=== PATIENT | male | born 1985 | race Caucasian/White ===

== ENCOUNTER 2017-09-09 00:33 | Emergency (ER) | payer BC ==
[~2017-09-09] VITALS: Ht 172.7 cm; Wt 122.0 kg
[2017-09-09 00:59] LABS: HEMATOCRIT 41.9 % (38.0-50.0); HEMOGLOBIN 14.3 G/DL (12.5-16.6); MCH 29.8 PG (29.0-34.0); MCHC 34.1 G/DL (30.0-36.0); MCV 87.3 FL (86-99); RBC DIS.WIDTH-CV 12.3 % (11.8-14.6); RBC DIS.WIDTH-SD 38.9 % (39-53); WHITE BLOOD COUNT 18.6 K/uL (4.1-10.2)
[2017-09-09 01:07] LABS: CHLORIDE 109 mEq/L (99-109); POTASSIUM 3.5 mEq/L (3.7-5.4); SODIUM 143 mEq/L (136-147)
[2017-09-09 01:09] LABS: GLUCOSE 111 mg/dL (70-99)
[2017-09-09 01:13] LABS: GFR ESTIMATE (CALCULATED) > 59 mL/min/ (58.99-99999)
[2017-09-09 01:14] LABS: UREA NITROGEN (BUN) 10 mg/dL (9-23)
[2017-09-09 01:19] LABS: ALBUMIN 4.1 g/dL (3.2-4.8)
[2017-09-09 01:21] LABS: TROP-I INTERPRETATION NEGATIVE; TROPONIN-I < 0.01 ng/mL (0.0-0.30)
[2017-09-09 01:24] LABS: TOTAL BILIRUBIN 0.4 mg/dL (0.0-1.0)
[2017-09-09 01:25] LABS: ALKALINE PHOSPHATASE 60 IU/L (3-129)
[2017-09-09 01:27] LABS: AST (GOT) 14 IU/L (2-34)
[2017-09-09 01:28] LABS: ALT (GPT) 19 IU/L (3-49); DIRECT BILIRUBIN 0.1 mg/dL (0.0-0.3)
[2017-09-09 01:29] LABS: LIPASE 19 U/L (1.0-51.0)
[2017-09-09 02:02] LABS: PLAT.SUFFICIENCY ADEQUATE; PLATELET COUNT 227 K/uL (156-360)
[2017-09-09 03:58] LABS: TROP-I INTERPRETATION NEGATIVE; TROPONIN-I < 0.01 ng/mL (0.0-0.30)
[2017-09-09] MEDS ORDERED: PROTONIX40 MG PO (04:10)
[2017-09-09 04:30] VITALS: BP 131/79
== END 2017-09-09 04:30 | disposition home or self-care (01) ==
LOC: EME 00:33
PROVIDERS: Emergency Medicine
DX: R07.9 Chest pain, unspecified (principal); D72.829 Elevated white blood cell count, unspecified; Z82.49 Family history of ischemic heart disease and other diseases of the circulatory system; I10 Essential (primary) hypertension; F17.200 Nicotine dependence, unspecified, uncomplicated; F41.9 Anxiety disorder, unspecified
CPT/HCPCS: 71046; 80048; 80076; 83690; 84484; 85027; 93005; 99281; 99284